=== PATIENT | male | born 1955 | race Caucasian/White ===

== ENCOUNTER → 2021-03-02 | Outpatient (CLI) | payer OTHER ==
[~2021-03-02] MED LIST: ASA81BEC PO; CLARITIN10 MG PO; CRESTOR20 MG PO; FLONASE 0.05%50 MCG NASAL; LOSARTAN-HCTZ1 EAC3 PO; PROAIR HFA8.5 GM INH; WELLBUTRIN XL150 MG PO
== END ==
LOC: SJCVCIMAG 10:14
PROVIDERS: ATTEND Internal Medicine Cardiovascular Disease
DX: I65.23 Occlusion and stenosis of bilateral carotid arteries (principal); R94.31 Abnormal electrocardiogram [ECG] [EKG]; R00.0 Tachycardia, unspecified; I70.203 Unspecified atherosclerosis of native arteries of extremities, bilateral legs; I10 Essential (primary) hypertension; E78.00 Pure hypercholesterolemia, unspecified; I77.9 Disorder of arteries and arterioles, unspecified; J44.9 Chronic obstructive pulmonary disease, unspecified; I25.10 Atherosclerotic heart disease of native coronary artery without angina pectoris; E78.5 Hyperlipidemia, unspecified; F17.210 Nicotine dependence, cigarettes, uncomplicated; R06.00 Dyspnea, unspecified; M79.605 Pain in left leg; Z88.8 Allergy status to other drugs, medicaments and biological substances; Z79.82 Long term (current) use of aspirin; Z79.899 Other long term (current) drug therapy; Z86.73 Personal history of transient ischemic attack (TIA), and cerebral infarction without residual deficits; Z82.49 Family history of ischemic heart disease and other diseases of the circulatory system

== ENCOUNTER → 2021-03-08 | Outpatient (CLI) | payer OTHER ==
[~2021-03-08] VITALS: Ht 175.3 cm; Wt 112.0 kg
[2021-03-08 09:07] VITALS: BP 141/80
--- NOTE | 2021-03-08 15:38 | CATHLAB ---
[facility] [place] [address] INVASIVE PROCEDURE REPORT Name: CARLOS A HINES Room #: REG LIYA Fierro#: [id number] Admission: 03/08/21 Attend Phys: Yosef Muhammad MD Discharge: Date of : 55 Report #: [id number] THIS REPORT FOR: cc: Brett Craig Steven F. DO Mancuso, Gerald M. MD [facility] ~ APPROVED REPORT Study performed: 03/08/2021 12:20:24 Patient Details Patient Status: Out-Patient Room #: The patient is a 65 year-old male Event Personnel Markell Pak Boring Machine Set Up Operator, Keily Izaguirre RTR Monitor, Ligia Galvez RTR Scrub, Shelli Salmon RTR, JARROD Scrub, Mildred Seth RN manager call center Performed Left Heart Cath w/or w/o Coronaries [id number] [facility] Hemostasis w/ Mynx 28869 Initial Mod Sed Same Phys/QHP Gr5y [id number] Mod Sed Same Phys/QHP Ea [id number] Procedure Narrative The was infiltrated with 1% Lidocaine subcutaneous anesthesia. A 7F 11CM BRITE-TIP sheath was inserted into the RFA^. Coronary angiography was performed using coronary diagnostic catheters. The right coronary system was accessed and visualized with a JR4 catheter. The left coronary system was accessed and visualized with a JL4 catheter. The left ventricle was accessed and visualized with a PIGTAIL catheter. Left ventriculogram was performed in 30 degree projection. Closure device was deployed with a Fr MYNX CONTROL 6F/7F L#[id number]. The patient tolerated the procedure well and there were no complications associated with the procedure. There was no hematoma. Intraoperative Conscious Sedation Sedation start time: 11:09 Case end Time: 12:45 Fentanyl 150 mcg Versed 2.0 mg Fluoro Time: 14.50 minutes Dose: DAP 88462.50 cGycm2 3147 mGy [facility] [address] [place] [address] INVASIVE PROCEDURE REPORT Name: CARLOS A HINES Room #: REG [facility]#: [id number] Admission: 03/08/21 Attend Phys: Yosef Muhammad, Discharge: Date of : 55 Report #: [id number] Contrast Type and Amount: Visipaque 189 ml Hemodynamics The aortic pressure is 134/61 mmHg with a mean of 89 mmHg. The left ventricular pressure is 134/-2 mmHg with a mean of mmHg. The left ventricular end diastolic pressure is 17 mmHg. PCI Technique Lesion Percutaneous coronary intervention was performed on the External iliac. PCI Technique Lesion 2 Percutaneous Coronary Intervention was performed on the External iliac. Conclusion #1 Normal left ventricular size with subtle inferior basilar hypokinesis EF 50 to 55% range #2 left main mildly calcified mild disease giving rise to LAD and circumflex. #3 LAD is proximal calcification with mild irregularities that extends to the apex. No occlusive disease diagonal branch is moderate in distribution and mildly diseased. #4 circumflex OM is moderate in distribution although nondominant. There is 30 to 40% proximal mid vessel irregularity filling a large OM branch and a smaller branch in the AV groove. 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 Recommendations and plan: Continue aggressive risk factor modification. No indication for coronary intervention. We will continue current regimen. Follow-up will be arranged. Patient had peripheral intervention by Dr. Muhammad see his dictation. <ELECTRONICALLY SIGNED> By: Markell Pak MD, FACC 03/08/21 1538 [id number] Markell Pak MD, FACC /INF
== END | disposition home or self-care (01) ==
LOC: CATH 07:16
PROVIDERS: ATTEND Nuclear Medicine Nuclear Cardiology
DX: I25.10 Atherosclerotic heart disease of native coronary artery without angina pectoris (principal); I70.213 Atherosclerosis of native arteries of extremities with intermittent claudication, bilateral legs; I70.1 Atherosclerosis of renal artery; I10 Essential (primary) hypertension; E78.5 Hyperlipidemia, unspecified; F17.210 Nicotine dependence, cigarettes, uncomplicated; Z98.890 Other specified postprocedural states; Z79.899 Other long term (current) drug therapy; Z98.52 Vasectomy status; Z86.73 Personal history of transient ischemic attack (TIA), and cerebral infarction without residual deficits; Z88.8 Allergy status to other drugs, medicaments and biological substances

== ENCOUNTER → 2021-07-06 | Outpatient (CLI) | payer OTHER | LOC: CATH 07:43 → SJCVCIMAG 08:01 | PROVIDERS: ATTEND Nuclear Medicine Nuclear Cardiology | DX: R94.31 Abnormal electrocardiogram [ECG] [EKG] (principal); I49.3 Ventricular premature depolarization; R00.0 Tachycardia, unspecified; I77.9 Disorder of arteries and arterioles, unspecified; I73.9 Peripheral vascular disease, unspecified; I10 Essential (primary) hypertension; E78.00 Pure hypercholesterolemia, unspecified; Z72.0 Tobacco use; I25.10 Atherosclerotic heart disease of native coronary artery without angina pectoris; E78.5 Hyperlipidemia, unspecified; J45.909 Unspecified asthma, uncomplicated; Z98.890 Other specified postprocedural states; Z79.82 Long term (current) use of aspirin; Z79.899 Other long term (current) drug therapy; Z88.5 Allergy status to narcotic agent; M79.604 Pain in right leg; M79.605 Pain in left leg ==